=== PATIENT | female | born 1990 | race Two or more races ===

== ENCOUNTER 2020-08-28 13:00 | Inpatient (IN) | payer MEDICAID ==
[~2020-08-28] VITALS: Ht 167.6 cm; Wt 184.9 kg
[2020-08-28 17:28] VITALS: BP 141/87
[2020-08-28] MEDS ORDERED: MELATONIN 5 MG TABLET PO PRN (17:30)
[2020-08-28] MEDS ORDERED: POLYETHYLENE GLYCOL 17 GM PACKET PO PRN (17:30)
[2020-08-28] MEDS ORDERED: BISACODYL 10 MG SUPP PR PRN (17:30)
[2020-08-28] MEDS ORDERED: ONDANSETRON 2MG/ML, 2ML IVPush PRN (17:30)
[2020-08-28] MEDS ORDERED: LABETALOL 5MG/ML, 20ML IVPush PRN (17:30)
[2020-08-28] MEDS: LACTATED RINGERS 1,000 ML IV SCH (17:30)
[2020-08-28] MEDS ORDERED: CYCLOBENZAPRINE 10 MG TABLET PO PRN (17:30)
[2020-08-28 17:46] VITALS: BP 141/87
[2020-08-28] MEDS: PLEASE ENTER HEIGHT AND WEIGHT MC SCH ×2 (18:00→23:28)
[2020-08-28] MEDS ORDERED: ONDANSETRON 2MG/ML, 2ML IVPush ONE (18:30)
[2020-08-28] MEDS: FAMOTIDINE 20 MG/2 ML IVPush SCH (19:29)
[2020-08-28] MEDS: METRONIDAZOLE PMX 500MG/100ML 100 ML IV SCH (19:29)
[2020-08-28 19:30] LABS: BASOPHILS % (AUTO) 0 % (0-1); EOSINOPHILS % (AUTO) 0 % (1-7); LYMPHOCYTES % (AUTO) 10 % (22-44); MEAN CORPUSCULAR HEMOGLOBIN 30.9 pg (27.0-34.8); MEAN CORPUSCULAR HGB CONC 32.9 g/dL (32.4-35.8); MEAN PLATELET VOLUME 8.4 fL (7.4-10.4); MONOCYTES % (AUTO) 5 % (2-9); NEUTROPHILS % (AUTO) 85 % (42-75); PLATELET COUNT 174 x10^3/uL (130-400); RED BLOOD COUNT 4.58 x10^6/uL (3.82-5.3); RED CELL DISTRIBUTION WIDTH 14.9 % (9.6-15.2)
[2020-08-28 19:35] LABS: CHLORIDE 111 mmol/L (98-107)
[2020-08-28] MEDS ORDERED: ALBU6.7H8 INH (19:35)
[2020-08-28] MEDS ORDERED: TRAZ50TA66 PO (19:35)
[2020-08-28] MEDS ORDERED: CYCL-259 PO (19:37)
[2020-08-28] MEDS ORDERED: HYDR-826 PO (19:37)
[2020-08-28 19:44] LABS: MD NO
[2020-08-28 19:45] LABS: ALANINE AMINOTRANSFERASE 43 U/L (12-78); ALBUMIN 2.7 g/dL (3.4-5.0); ALKALINE PHOSPHATASE 126 U/L (45-117); ANION GAP 5 mmol/L (5-15); BILIRUBIN,TOTAL 0.7 mg/dL (0.2-1.0); CHOL/HDL RATIO 3.1; CHOLESTEROL, TOTAL 93 mg/dL (140-239); CREATININE 0.74 mg/dL (0.55-1.02); HDL CHOL % 32 % (28-40); HDL CHOLESTEROL (DIRECT) 30 mg/dL (40-60); LDL CHOLESTEROL,CALCULATED 50 mg/dL (54-169); LDL/HDL RATIO 1.7 (0.5-3.0); TRIGLYCERIDES 66 mg/dL (50-200); VLDL CHOLESTEROL 13 mg/dL (0-25)
[2020-08-28] MEDS: morphine SULFATE 10 MG/ML, 1ML IVPush PRN ×2 (19:46→22:42)
[2020-08-28] MEDS: PROMETHAZINE 25 MG/ML, 1ML IM PRN (19:55)
[2020-08-28 20:42] VITALS: BP 137/81
[2020-08-29 01:34] VITALS: BP 124/88
[2020-08-29] MEDS: METRONIDAZOLE PMX 500MG/100ML 100 ML IV SCH ×3 (04:19→20:06)
[2020-08-29 06:10] LABS: ALBUMIN 2.5 g/dL (3.4-5.0); ANION GAP 7 mmol/L (5-15); CALCIUM 8.2 mg/dL (8.5-10.1); CHLORIDE 112 mmol/L (98-107)
[2020-08-29 06:21] LABS: ALANINE AMINOTRANSFERASE 37 U/L (12-78); ALKALINE PHOSPHATASE 111 U/L (45-117); BILIRUBIN,TOTAL 0.8 mg/dL (0.2-1.0); CREATININE 0.69 mg/dL (0.55-1.02); TOTAL PROTEIN 6.9 g/dL (6.4-8.2)
[2020-08-29 06:22] LABS: BASOPHILS % (AUTO) 0 % (0-1); EOSINOPHILS % (AUTO) 2 % (1-7); LYMPHOCYTES % (AUTO) 16 % (22-44); MEAN CORPUSCULAR HEMOGLOBIN 30.8 pg (27.0-34.8); MEAN CORPUSCULAR HGB CONC 32.6 g/dL (32.4-35.8); MEAN PLATELET VOLUME 8.1 fL (7.4-10.4); MONOCYTES % (AUTO) 7 % (2-9); NEUTROPHILS % (AUTO) 75 % (42-75); PLATELET COUNT 150 x10^3/uL (130-400); RED BLOOD COUNT 4.31 x10^6/uL (3.82-5.3); RED CELL DISTRIBUTION WIDTH 15.4 % (9.6-15.2)
[2020-08-29 06:33] LABS: MD NO
[2020-08-29] MEDS: morphine SULFATE 10 MG/ML, 1ML IVPush PRN ×4 (06:42→22:59)
[2020-08-29] MEDS: SENNA/DOCUSATE TABLET PO SCH (07:39)
[2020-08-29 08:17] VITALS: BP 108/75
[2020-08-29] MEDS: FAMOTIDINE 20 MG/2 ML IVPush SCH ×2 (10:15→21:02)
[2020-08-29] MEDS: METOCLOPRAMIDE 5 MG/ML, 2ML IVPush PRN ×2 (11:22→21:02)
[2020-08-29] MEDS: LACTATED RINGERS 1,000 ML IV SCH (13:24)
[2020-08-29] MEDS: PROMETHAZINE 25 MG/ML, 1ML IM PRN (13:41)
[2020-08-29 14:04] VITALS: BP 128/85
[2020-08-29] MEDS ORDERED: GOLYTELY 4,000ML ORAL.SOL PO ONE (20:00)
[2020-08-29 21:11] VITALS: BP 136/84
[2020-08-30] MEDS: morphine SULFATE 10 MG/ML, 1ML IVPush PRN ×4 (02:00→21:10)
[2020-08-30] MEDS: LACTATED RINGERS 1,000 ML IV SCH ×2 (02:01→23:58)
[2020-08-30] MEDS: PROMETHAZINE 25 MG/ML, 1ML IM PRN (02:01)
[2020-08-30 02:39] VITALS: BP 122/69
[2020-08-30] MEDS: METRONIDAZOLE PMX 500MG/100ML 100 ML IV SCH ×3 (04:21→20:48)
[2020-08-30] MEDS ORDERED: PROPOFOL 100 ML ONE (07:57)
[2020-08-30] MEDS: SENNA/DOCUSATE TABLET PO SCH (08:04)
[2020-08-30] MEDS: FAMOTIDINE 20 MG/2 ML IVPush SCH ×2 (08:04→20:47)
[2020-08-30] MEDS ORDERED: ACETAMINOPHEN 325 MG TABLET PO PRN (08:30)
[2020-08-30] MEDS ORDERED: OXYcodone 5 MG/5 ML ORAL.SOL UDC PO PRN (08:30)
[2020-08-30] MEDS ORDERED: FENTANYL PF 100 MCG/2ML IV PRN (08:30)
[2020-08-30] MEDS ORDERED: ONDANSETRON 2MG/ML, 2ML IVPush PRN (08:30)
[2020-08-30 09:30] VITALS: BP 119/80
[2020-08-30 13:50] VITALS: BP 138/95
[2020-08-30] MEDS: METOCLOPRAMIDE 5 MG/ML, 2ML IVPush PRN (19:29)
[2020-08-30 19:42] VITALS: BP 136/91
[2020-08-30] MEDS: OXYcodone IR 5MG TABLET PO PRN (23:54)
[2020-08-31 00:25] VITALS: BP 144/96
[2020-08-31] MEDS: METRONIDAZOLE PMX 500MG/100ML 100 ML IV SCH ×3 (04:32→22:42)
[2020-08-31] MEDS: morphine SULFATE 10 MG/ML, 1ML IVPush PRN ×2 (07:25→22:02)
[2020-08-31 07:45] VITALS: BP 140/87
[2020-08-31] MEDS: FAMOTIDINE 20 MG/2 ML IVPush SCH ×2 (08:20→20:13)
[2020-08-31] MEDS: SENNA/DOCUSATE TABLET PO SCH (08:22)
[2020-08-31] MEDS ORDERED: PROMETHAZINE 25 MG/ML, 1ML IVPush PRN (09:00)
[2020-08-31] MEDS ORDERED: ONDANSETRON 2MG/ML, 2ML IVPush PRN (09:00)
[2020-08-31] MEDS ORDERED: ACETAMINOPHEN 325 MG TABLET PO PRN (09:00)
[2020-08-31] MEDS ORDERED: LABETALOL 5MG/ML, 20ML IV PRN (09:00)
[2020-08-31] MEDS ORDERED: MEPERIDINE/PF 25MG/0.5ML IVPush PRN (09:00)
[2020-08-31] MEDS ORDERED: hydrALAzine 20 MG/ML, 1ML IV PRN (09:00)
[2020-08-31] MEDS ORDERED: OXYcodone 5 MG/5 ML ORAL.SOL UDC PO PRN (09:00)
[2020-08-31] MEDS ORDERED: EPHEDRINE 50 MG/ML, 1ML IVPush PRN (09:00)
[2020-08-31] MEDS ORDERED: BUPIVACAINE/PF 0.5% ONE (10:50)
[2020-08-31] MEDS ORDERED: EPINEPHRINE 1 MG/ML, 1ML ONE (10:50)
[2020-08-31] MEDS ORDERED: FENTANYL PF 250 MCG/5ML ONE (11:13)
[2020-08-31] MEDS ORDERED: MIDAZOLAM 1 MG/ML, 2ML ONE (11:13)
[2020-08-31] MEDS ORDERED: CEFOTETAN PMX 2GM/50ML 50 ML ONE (12:00)
[2020-08-31] MEDS ORDERED: BUPIVACAINE/PF-EPI 0.5% 1:200K INFIL ONE (12:15)
[2020-08-31] MEDS ORDERED: SUGAMMADEX 200 MG/2 ML IVPush ONE ×2 (12:16)
[2020-08-31] MEDS ORDERED: KETOROLAC 30 MG/1 ML ONE (12:16)
[2020-08-31] MEDS ORDERED: ONDANSETRON 2MG/ML, 2ML ONE (12:17)
[2020-08-31] MEDS ORDERED: SUCCINYLCHOLINE 20 MG/ML, 10ML ONE (12:17)
[2020-08-31] MEDS ORDERED: PROPOFOL 10 MG/ML, 20ML ONE (12:17)
[2020-08-31] MEDS ORDERED: ROCURONIUM 10MG/ML,5ML ONE (12:17)
[2020-08-31] MEDS ORDERED: DEXAMETHASONE 4 MG/ML, 1ML ONE (12:17)
[2020-08-31] MEDS ORDERED: FENTANYL PF 100 MCG/2ML ONE (13:21)
[2020-08-31] MEDS ORDERED: OXYcodone 5 MG/5 ML ORAL.SOL UDC ONE (13:21)
[2020-08-31] MEDS: FENTANYL PF 100 MCG/2ML IV PRN ×2 (13:25→13:30)
[2020-08-31] MEDS ORDERED: HYDROmorphone 1 MG/ML, 1ML INJ ONE (13:33)
[2020-08-31] MEDS: HYDROmorphone 1 MG/ML, 1ML INJ IVPush PRN ×2 (13:39→13:44)
[2020-08-31] MEDS ORDERED: MEPERIDINE/PF 25MG/ML,1ML ONE (13:59)
[2020-08-31 18:32] VITALS: BP 148/75
[2020-08-31] MEDS: OXYcodone IR 5MG TABLET PO PRN (20:12)
[2020-08-31] MEDS ORDERED: MORPHINE SULFATE 4 MG/ML, 1ML ONE (22:00)
[2020-09-01] MEDS: OXYcodone IR 5MG TABLET PO PRN ×3 (00:18→13:11)
[2020-09-01] MEDS: LACTATED RINGERS 1,000 ML IV SCH (00:18)
[2020-09-01 00:23] VITALS: BP 123/71
[2020-09-01 04:21] VITALS: BP 127/80
[2020-09-01] MEDS ORDERED: MORPHINE SULFATE 4 MG/ML, 1ML ONE (04:46)
[2020-09-01] MEDS: morphine SULFATE 10 MG/ML, 1ML IVPush PRN (04:51)
[2020-09-01] MEDS: METRONIDAZOLE PMX 500MG/100ML 100 ML IV SCH (06:13)
[2020-09-01 06:20] VITALS: BP 118/81
[2020-09-01] MEDS: SENNA/DOCUSATE TABLET PO SCH (08:46)
[2020-09-01] MEDS ORDERED: FAMOTIDINE 20 MG TABLET PO SCH (09:00)
[2020-09-01 13:02] VITALS: BP 139/87
[2020-09-01] MEDS ORDERED: CALCIUM CARBONATE 500 MG TAB.CHEW PO ONE (13:30)
== END 2020-09-01 14:03 | disposition home or self-care (01) | DRG 263 ==
LOC: 4NE 13:00 → DCLOUNGE 09-01 13:55
PROVIDERS: ADMIT Internal Medicine; ATTEND Internal Medicine
PROC: 0DJD8ZZ Inspection of Lower Intestinal Tract, Via Natural or Artificial Opening Endoscopic (ICD-10-PCS; 2020-08-30)
PROC: 0FT44ZZ Resection of Gallbladder, Percutaneous Endoscopic Approach (ICD-10-PCS; principal; 2020-08-31 12:00)
DX: K80.10 Calculus of gallbladder with chronic cholecystitis without obstruction (principal); F12.90 Cannabis use, unspecified, uncomplicated; R73.03 Prediabetes; K76.0 Fatty (change of) liver, not elsewhere classified; J45.909 Unspecified asthma, uncomplicated; G89.29 Other chronic pain; F41.9 Anxiety disorder, unspecified; F31.9 Bipolar disorder, unspecified; Z20.828 Contact with and (suspected) exposure to other viral communicable diseases; R16.0 Hepatomegaly, not elsewhere classified; R11.2 Nausea with vomiting, unspecified; K57.30 Diverticulosis of large intestine without perforation or abscess without bleeding; Z68.43 Body mass index [BMI] 50.0-59.9, adult; Z88.8 Allergy status to other drugs, medicaments and biological substances; Z88.2 Allergy status to sulfonamides; E66.9 Obesity, unspecified
CPT/HCPCS: 36415; 74181; 80053; 80061; 83690; 84443; 84702; 85025; 87635; 88304; G0378; J0171; J1100; J1170; J1885; J2175; J2250; J2405; J2550; J2704; J3010; J0330; J2270; J2765; J7120